=== PATIENT | female | born 1995 | race African-American/Black ===

== ENCOUNTER 2025-08-31 13:04 | Emergency (ER) | payer OTHER, SELFPAY ==
[2025-08-31] VITALS (15 sets, daily range): BP systolic 123–146; BP diastolic 80–103; PULSE 86–113; RESP 10–22; TEMP 37; O2SAT 98–100
--- NOTE | ~2025-08-31 | XR_ITS ---
EXAMINATION: XR chest 1V portable COMPARISON: No comparisons available. HISTORY: Hypertension FINDINGS: The lungs are clear, no effusion. No pneumothorax. Heart is normal size. Mediastinal and hilar contours are within normal limits. Bony thorax no acute abnormality. Miscellaneous: None Impression: No acute cardiopulmonary abnormality. 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
--- NOTE | 2025-08-31 14:04 | ED_ITS ---
HPI - General Adult General Chief complaint: Extremity Problem,Nontraumatic Stated complaint: Tingling/numbness Time Seen by Provider: 08/31/25 14:04 Source: patient Mode of arrival: ambulatory Limitations: no limitations History of Present Illness HPI narrative: 29 years old female came to the ED with numbness tingling of the lips tips of fingers bilaterally started couple weeks before Halloween, been going off and on since. Patient reports some shortness of breath at night before going to sleep. 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 Patient reports no aggravating or relieving factors. Patient is a single mom, her car is broken, uses marijuana daily and alcohol daily. Related Data Allergies Allergy/AdvReac Type Severity Reaction Status Date / Time No Known Allergies Allergy Unknown Verified 08/31/25 13:29 Review of Systems 2 Review of Systems: All systems reviewed & are unremarkable except as noted in HPI and below Exam 2 Narrative: General appearance: Well-developed, well-nourished Skin: Normal color Head: Normocephalic, nontraumatic Eyes: Clear conjunctiva ENT: Oropharynx normal, ears normal, nose normal Neck: Supple, nontender Chest and respiratory: Airway patent, no respiratory distress, no accessory muscle use Heart: Regular rate/rhythm Abdomen: Soft, nontender, no organomegaly, quiet bowel sounds Vascular: Normal peripheral pulses, normal capillary refill. 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, no gross motor deficit Course Vital Signs Vital signs: Vital Signs Temperature 37.0 C 08/31/25 13:24 Pulse Rate 111 H 08/31/25 13:24 Respiratory Rate 20 08/31/25 13:24 Blood Pressure 146/103 H 08/31/25 13:24 Pulse Oximetry 98 08/31/25 13:24 Oxygen Delivery Room Air 08/31/25 13:24 Temperature 37.0 C 08/31/25 13:24 Pulse Rate 111 H 08/31/25 13:24 Respiratory Rate 20 08/31/25 13:24 Blood Pressure 146/103 H 08/31/25 13:24 Pulse Oximetry 98 08/31/25 13:24 Oxygen Delivery Room Air 08/31/25 13:24 Medical Decision Making [facility] Narrative Medical decision making narrative: Patient presents with tingling numbness of the lips and tips of fingers bilaterally Vital signs showing blood pressure 146/103 heart rate 111 Physical examination is unremarkable except for intermittent signing Differential diagnosis include anxiety like symptoms, less likely multiple sclerosis, urinary tract infection, electrolyte imbalance, dehydration Blood workup today includes CBC, CMP, TSH showed WBC 11.3, MCV 117, MCH 42.9, AST 113 ALT 114 alkaline phosphatase 147 otherwise within normal limit Urinalysis showed no evidence of infection Chest x-ray showed no acute abnormality Diagnosis paresthesia, elevated liver enzyme The pt was discharged to home.the pt,s condition upon discharge was fair,education was provided to the pt in reference to the final impression,discharge study results,treatment,prognosis and need for follow up . Differential Diagnosis Differential Diagnosis: As above Vital Signs Vital Signs: Vital Signs Temperature 37.0 C 08/31/25 13:24 Pulse Rate 111 H 08/31/25 13:24 Respiratory Rate 20 08/31/25 13:24 Blood Pressure 146/103 H 08/31/25 13:24 Pulse Oximetry 98 08/31/25 13:24 Oxygen Delivery Room Air 08/31/25 13:24 Temperature 37.0 C 08/31/25 13:24 Pulse Rate 111 H 08/31/25 13:24 Respiratory Rate 20 08/31/25 13:24 Blood Pressure 146/103 H 08/31/25 13:24 Pulse Oximetry 98 08/31/25 13:24 Oxygen Delivery Room Air 08/31/25 13:24 Lab Data 08/31/25 14:58 08/31/25 14:58 Labs: Lab Results 08/31/25 08/31/25 Range/Units 14:58 15:20 WBC 11.3 H (4.5-10.0) K/mm3 RBC 3.38 L (4.2-5.4) M/mm3 Hgb 14.5 (12.0-15.0) g/dL Hct 39.8 (37.0-47.0) % MCV 117.8 H (80-100) fl MCH 42.9 H (26-34) pg MCHC 36.4 H (32-36) g/dl RDW 13.3 (11.5-14.5) % Plt Count 258 (150-375) k/mm3 MPV 10.8 H (7.4-10.4) fl Immature Gran % (Auto) 0.3 (0-0.5) % Neut % (Auto) 66.3 (45.5-73.1) % Lymph % (Auto) 23.0 (18.3-44.2) % Young % (Auto) 9.6 H (2.6-8.5) % Eos % (Auto) 0.4 (0-4.4) % Baso % (Auto) 0.4 (0.2-1.2) % Lymph # (Auto) 2.61 (0.9-3.2) K/mm3 Young # (Auto) 1.1 H (0.1-0.6) K/mm3 Eos # (Auto) 0.1 (0-0.3) K/mm3 Baso # (Auto) 0.1 (0.0-0.1) K/mm3 Abs Immat Gran (auto) 0.03 (0.00-0.031) K/mm3 Absolute Neuts (auto) 7.5 H (1.3-6.7) K/mm3 Absolute Nucleated RBC 0.000 (0.0-0.012) K/mm3 Band Neutrophils % Not Reportable Nucleated RBC % 0.0 (0.0-0.2) % Platelet Estimate Adequate (Adequate) Macrocytosis 2+ (NORMAL) Schistocytes None seen Sodium 135 L (137-145) mmol/L Potassium 4.0 (3.4-5.0) mmol/L Chloride 104 (98-107) mmol/L Carbon Dioxide 21 L (22-30) mmol/L Anion Gap 10 (4-12) mmol/L BUN 9 (7-17) mg/dL Creatinine 0.70 (0.7-1.0) mg/dL Estim Creat Clear Calc 129 ml/min Estimated GFR > 60 (59 - ) Glucose 106 (65-110) mg/dL Calcium 9.4 (8.4-10.2) mg/dL Total Bilirubin 1.2 (0.2-1.3) mg/dL AST 113 H (14-36) U/L ALT 114 H (6-35) U/L Alkaline Phosphatase 147 H (38-126) U/L Total Protein 8.7 H (6.3-8.2) g/dL Albumin 4.6 (3.5-5.1) g/dL TSH 2.000 (0.465-4.680) uIU/mL Urine Color Yellow (Yellow) Urine Appearance Clear (Clear) Urine pH 7.5 (5.0-9.0) Ur Specific [place] 1.016 (1.001-1.035) Urine Protein Negative (Negative) mg/dL Urine Glucose (UA) Negative (Negative) mg/dL Urine Ketones Trace H (Negative) mg/dL Ur Blood (Man) Negative (Negative) Urine Nitrate Negative (Negative) Urine Bilirubin Negative (Negative) Urine Urobilinogen 1.0 (<2.0) mg/dL Add Ur Microanalysis Reviewed Leukocyte Esterase Rfl 1+ H (Negative) SANDI/UL Urine RBC 0-2 (0-2) /hpf Urine WBC 0-5 (0-3) /hpf Ur Squamous Epith Cells Few (Few) /hpf Urine Bacteria Rare /hpf Urine Casts 0-2 Urine Opiates Screen Negative (Negative) Urine Methadone Screen Negative (Negative) Ur Barbiturates Screen Negative (Negative) Ur Phencyclidine Scrn Negative (Negative) Ur Amphetamine Screen Negative (Negative) U Benzodiazepines Scrn Negative (Negative) Urine Cocaine Screen Negative (Negative) U Cannabinoids Screen Positive A (Negative) Imaging Data Radiologist's impression: Impressions Chest X-Ray 08/31/25 15:04 Impression: No acute cardiopulmonary abnormality. Critical Care Time Critical Care Time Critical Care Time: No Discharge Plan Discharge Clinical Impression: Paresthesia, Elevated liver enzymes, Anxiety-like symptoms Patient Disposition: Home Condition: Stable Instructions: Stress (ED), Paresthesia (ED), Transaminitis (ED) Additional Instructions: Return if symptoms are worsening , call your family physician/ gastroenterology for appointment, take ibuprofen as as needed for aches and pain, continue home medications. Patient Language: Macedonian Prescriptions: New hydroxyzine HCl 50 mg tablet 50 mg PO QID PRN (Reason: Hyperventilation) Qty: 30 0RF Follow-up/Referrals: PHYSICIAN,SLPS [Primary Care Provider, Internal Medicine] Robbie Stevens MD [Physician, Gastroenterology] - 09/06/25 Florentin John MD [Physician, Family Practice] - 09/04/25
--- OUTSIDE RECORDS SUMMARY | 2025-08-31 14:44 | XMS_ITS | Data Portability ---
Author Organization [facility] Address [address] [place] [address] Assessment Encounter Date Assessment Date Assessment LastModified by Organization Details LastModified Time 08/21/2025 08/21/2025 Your TB test will need to be read within 48-72 hours You may return here to have that completed Continue to follow up with your PCP for your routine visits As always you can return here for any other concerns, thank you for choosing [facility]. Not available 08/21/2025 12:11:08 Plan of Treatment Reminders Order Date Submit Date Provider Last Modified By Organization Details Last Modified Time Details Appointments None recorded . Lab PPD (purifie d protein derivati ve), skin test 2024 025 RADHA In-Office Order, Internal Use Only DO Not Attach Compendium DO Not Attach Compendium, Do Not Delete/merge, [id number] 17:41:23 vaginal pathogen s panel, ALEX+prob e, vaginal fluid 2023 024 [email or web address] (Centralized Electronic Ordering - All Locations), Patient Can Go To The Location Of Their Choice, [id number] 11:47:36 urinalys is, dipstick 2023 024 lila In-Office Order, Internal Use Only DO Not Attach Compendium DO Not Attach Compendium, Do Not Delete/merge, [id number] 11:56:48 pap, IG + reflex HPV 2023 024 [facility] (Centralized Electronic Ordering - All Locations), Patient Can Go To The Location Of Their Choice, [id number] 11:47:35 Referral None recorded . Procedures None recorded . Surgeries None recorded . Imaging None recorded . Medication Orders Tubersol 5 tub. unit/0.1 mL intrader mal injectio n solution 2024 025 [email or web address] Not available 22:29:13 Patient TargetsNo targets recorded. Patient Instructions Encounter Date Encounter Id Patient Instructions Last Modified By Organization Details Last Modified Time 10/15/2024 [id number] On the date of this encounter, I was immediately available to assist the resident/fellow in the care of the patient, and have reviewed and agree with the resident s findings and plan of care as discussed during appointment. ~MD Jackson Notes seems a bit skimpy an lacking detail. [email or web address] Not available 10/19/2024 12:40:11 08/21/2025 [id number] A healthy lifestyle: care instructions Not available 08/21/2025 12:06:43 Your TB test janis l need to be read within 48-72 hours You may return here to have that completed Continue to follow up with your PCP for your routine visits As always you can return here for any other concerns, thank you for choosing [facility]. Not available 08/21/2025 12:11:43 Reason for Referral None Reported. Results Created Date Observation Date Name Description Value Unit Range Abnormal Flag Note LastModifiedBy Organization Detail LastModifiedTime 10/15/2010/15/2024 urina lysis , dipst ick Leukocytes Trace Not Available In-Offi ce Order Internal Use Only DO Not Attach Compendium DO Not Attach Compendium, Do Not Delete/merge, [id number] 10/15/2024 14:50:36 10/15/20 24 10/15/2024 urina lysis , dipst ick Nitrite negati ve Not Available In-Office Order Internal Use Only DO Not Attach Compendium DO Not Attach Compendium, Do Not Delete/merge, [id number] 10/15/2024 14:50:36 10/15/20 24 10/15/2024 urina lysis , dipst ick Urobilinogen 1 Not Available In-Of fice Order Internal Use Only DO Not Attach Compendium DO Not Attach Compendium, Do Not Delete/merge, 10/15/2024 14:50:36 10/15/20 24 10/15/2024 urina lysis , dipst ick Protein Negati ve Not Available In-Office Order Internal Use Only DO Not Attach Compendium DO Not Attach Compendium, Do Not Delete/merge, 10/15/2024 14:50:36 10/15/20 24 10/15/2024 urina lysis , dipst ick pH 5.5 Not Available In-Office Order Internal Use Only DO Not Attach Compendium DO Not Attach Compendium, Do Not Delete/merge, 10/15/2024 14:50:36 10/15/20 24 10/15/2024 urina lysis , dipst ick Blood Negati ve Not Available In-Office Order Internal Use Only DO Not Attach Compendium DO Not Attach Compendium, Do Not Delete/merge, 10/15/2024 14:50:36 10/15/20 24 10/15/2024 urina lysis , dipst ick Specific [place] 1.015 Not Available In-Off ice Order Internal Use Only DO Not Attach Compendium DO Not Attach Compendium, Do Not Delete/merge, 10/15/2024 14:50:36 10/15/20 24 10/15/2024 urina lysis , dipst ick Ketone Negati ve Not Available In-Office Order Internal Use Only DO Not Attach Compendium DO Not Attach Compendium, Do Not Delete/merge, 10/15/2024 14:50:36 10/15/20 24 10/15/2024 urina lysis , dipst ick Bilirubin Negati ve Not Available In-Office Order Internal Use Only DO Not Attach Compendium DO Not Attach Compendium, Do Not Delete/merge, 10/15/2024 14:50:36 10/15/20 24 10/15/2024 urina lysis , dipst ick Glucose Negati ve Not Available In-Office Order Internal Use Only DO Not Attach Compendium DO Not Attach Compendium, Do Not Delete/merge, 10/15/2024 14:50:36 10/16/20 24 10/18/2024 NUA B VAGIN ITIS PLUS (VG+) atopobium vaginae HIGH - 2 score abnormal Not Available [facility] ([facility]) [address] [place], [address], 10/19/2024 03:07:36 10/16/20 24 10/18/2024 NUA B VAGIN ITIS PLUS (VG+) bvab 2 HIGH - 2 score abnormal Not Available [facility] ([facility]) [address], [place], [address], 10/19/2024 03:07:36 10/16/20 24 10/18/2024 NUA B VAGIN ITIS PLUS (VG+) megasphaera 1 HIGH - 2 score abnormal Calcu late total score by addin g the 3 indiv idual bacte rial vagin osis (BV) marke r score s toget her. Total score is inter prete d as follo ws: Total score 0-1: Indic ates the absen ce of BV. Total score 2: Indet ermin ate for BV. Addit ional clini enid data shoul d be evalu ated to estab daysi a diagn osis. Total score 3-6: Indic ates the prese nce of BV. Not Available [facility] ([facility]) [address] [place], [address], 10/19/2024 03:07:36 10/16/20 24 10/18/2024 NUA B VAGIN ITIS PLUS (VG+) alis albicans, ALEX NEGATI VE negati ve Not Available [facility] ([facility]) [address] [place], [address], 10/19/2024 03:07:36 10/16/20 24 10/18/2024 NUA B VAGIN ITIS PLUS (VG+) alis glabrata, ALEX NEGATI VE negati ve Not Available [facility] ([facility]) [address] [place], [address], 10/19/2024 03:07:36 10/16/20 24 10/19/2024 NUA B VAGIN ITIS PLUS (VG+) trich vag by ALEX POSITI VE negati ve abnormal Not Available [facility] ([facility]) [address] [facility], [place], [address], 10/19/2024 03:07:36 10/16/20 24 10/19/2024 NUA B VAGIN ITIS PLUS (VG+) chlamydia trachomatis, ALEX NEGATI VE negati ve Not Available [facility] ([facility]) [address], [place], [address], 10/19/2024 03:07:36 10/16/20 24 10/19/2024 NUA B VAGIN ITIS PLUS (VG+) neisseria gonorrhoeae, ALEX NEGATI VE negati ve Not Available [facility] ([facility]) [address], [place], [address], 10/19/2024 03:07:36 10/16/20 24 10/18/2024 IGP, APTIM A HPV, RFX 16/18 ,45 HPV aptima POSITI VE negati ve abnormal This nucle ic acid ampli ficat ion test detec ts fourt een high- risk HPV types (16,1 8,31, 33,35 ,39,4 5,51, 52,56 ,58,5 9,66, 68) witho ut diffe renti ation . Not Available [facility] ([facility]) [address], [place], [address], 10/24/2024 20:20:24 10/16/2010/24/2024 IGP, APTIM A HPV, RFX 16/18 ,45 diagnosis: COMMEN T NEGAT CONCETTA FOR INTRA EPITH ELIAL LESIO N OR MALIG SILVIA . SPECI MEN REPRO CESSE D FOR INTER PRETA TION USING GLACI AL ACETI C ACID (GAA) . Not Available [facility] ([facility]) [address] [facility] [address], [place], [address], 10/24/2024 20:20:24 10/16/20 24 10/24/2024 IGP, APTIM A HPV, RFX 16/18 ,45 specimen adequacy: ANNEMARIE Sevilla Satis facto ry for evalu ation . Endoc ervic al and/o r squam ous metap lasti c cells (endo cervi enid compo nent) are prese nt. Parti ally obscu ring thick areas are prese nt. Not Available [facility] ([facility]) [address] [facility], [place], [address], 10/24/2024 20:20:24 10/16/20 24 10/24/2024 IGP, APTIM A HPV, RFX 16/18 ,45 clinician provided ICD10: ANNEMARIE Sevilla N89.8 Z12.4 Not Available [facility] ([facility]) [address], [place], [address], 10/24/2024 20:20:24 10/16/20 24 10/24/2024 IGP, APTIM A HPV, RFX 16/18 ,45 performed by: Marilee Drake (ASCP ) Not Available [facility] ([facility]) [address] [place], [address], 10/24/2024 20:20:24 10/16/20 24 10/24/2024 IGP, APTIM A HPV, RFX 16/18 ,45 . . Not Available [facility] ([facility]) [address] [place], [address], 10/24/2024 20:20:24 10/16/20 24 10/24/2024 IGP, APTIM A HPV, RFX 16/18 ,45 note: ANNEMARIE Sevilla The Pap smear is a scree jose test leonora storm to aid in the detec tion of mariann ligna nt and malig nant condi tions of the uteri ne cervi x. It is not a diagn ostic proce dure and shoul d not be used as the sole means of detec ting cervi enid cance r. Both false -posi tive and false -nega tive repor ts do occur . Not Available [facility] ([facility]) [address] [place], [address], 10/24/2024 20:20:24 10/16/20 24 10/24/2024 IGP, APTIM A HPV, RFX 16/18 ,45 test methodology: - The Thin Prep( R) Image r was unabl e to read this speci men. There fore a gaye casanovaie w was perfo rmed. Not Available [facility] ([facility]) [address] [place], [address], 10/24/2024 20:20:24 10/16/20 24 10/24/2024 IGP, APTIM A HPV, RFX 16/18 ,45 HPV genotype reflex COMMEN T Crite hayden met, see HPV Genot ype resul ts. Not Available [facility] ([facility]) [address] [place], [address], 10/24/2024 20:20:24 10/16/20 24 10/24/2024 HPV GENOT YPES 16/18 ,45 HPV genotype 16 Negati ve negati ve Not Available [facility] ([facility]) [address] [place], [address], 10/24/2024 20:20:26 10/16/20 24 10/24/2024 HPV GENOT YPES 16/18 ,45 HPV genotype 18,45 Negati ve negati ve Not Available [facility] ([facility]) [address] [place], [address], 10/24/2024 20:20:26 08/23/20 25 08/23/2025 PPD (jermaine fied prote in deriv ative ), skin test Result Negati ve Not Available In-Office Order Internal Use Only DO Not Attach Compendium DO Not Attach Compendium, Do Not Delete/merge, [id number] 08/21/2025 12:06:35 Result Notes None recorded. Medical Equipment None Reported. Allergies No known drug allergies Medications Name Sig Start Date Stop Date Status Note LastModified by Organization Details LastModified Time Tubersol 5 tub. unit/0.1 mL intradermal injection solution Administer .1ml interdermal ly 2024 active Not Available Not Available Not Avai lable metronidazol e 500 mg tablet Take 1 tablet twice a day by oral route for 7 days. 2024 active Not Available Not Available Not Avai lable Vitals Date Recorded Body height Body mass index (BMI) Body weight Oxygen saturation Oxygen saturation in Arterial blood by Pulse oximetry Heart rate Respiratory rate Body temperature Systolic And Diastolic Provider Name and Address Organization Details Last Updated DateTime 5 167.64 cm 38.8 kg/m2 614874. 22 g 96 % 96 % 74 /min 18 /min 97.3 [degF] 136/83 mm[Hg] Georgette Gregg MA [facility] 5 11:49:04 Date Recorded Body weight Oxygen saturation Oxygen saturation in Arterial blood by Pulse oximetry Heart rate Body mass index (BMI) Body height Systolic And Diastolic Provider Name and Address Organization Details Last Updated DateTime 4 331161. 18 g 97 % 97 % 91 /min 37.5 kg/m2 167.64 cm 124/64 mm[Hg] Merlene Kent MA [facility] 4 14:47:35 Social History Question Answer Notes LastModified by Organizat ion Details LastModified Time Tobacco Smoking Status Never Smoker Merlene Kent MA null, [facility] 10/15/2024 14:41:11 How Many Years Have You Consumed Alcohol? 6 Information not available 10/15/2024 What Is Your Level Of Caffeine Consumption? Occasional Information not available 10/15/2024 Are There Any Guns Present In Your Home? No Information not available 10/15/2024 What Was The Date Of Your Most Recent Tobacco Screening? 08/21/2025 Information not available 08/21/2025 How Many Children Do You Have? 1 Information not available 10/15/2024 Do You Use Protection During Sex? No Information not available 10/15/2024 What Is Your Relationship Status? Single Information not available 10/15/2024 Are You Sexually Active? Yes Information not available 10/15/2024 Do You Have Smoke And Carbon Monoxide Detectors In Your Home? Yes Information not available 10/15/2024 Are You Passively Exposed To Smoke? No Information no t available 10/15/2024 Do You Use Sunscreen Routinely? No Information not available 10/15/2024 Has Tobacco Cessation Counseling Been Provided? Yes Information not available 10/15/2024 On What Date Was Tobacco Cessation Counseling Provided? 08/21/2025 Information not available 08/21/2025 Sex: Unknown Functional Status Question Answer Note LastModified by Organizat ion Details LastModified Time Do you use any illicit or recreational drugs? Yes Information not available 10/15/2024 Do you or have you ever used any other forms of tobacco or nicotine? No Information not available 10/15/2024 What is your level of alcohol consumption? Moderate Information not available 10/15/2024 Mental Status None recorded. Family History Nothing Reported. Medical History No medical history recorded. Gynecological History Statement/Question Response Flow Moderate Date of LMP 08/31/2024 Frequency of Cycle (Q days) Duration of Flow (days) 4 Current Control Method None Age at First Child 23 LMP Definite Obstetrics History GPAL:G 1 P 1 0 0 0 Type Value Full Term 1 Total 1 Past Encounters Encounter ID Performer Location Encounter Start Date Encounter Closed Date Diagnosis/Indication Diagnosis SNOMED-CT Code Diagnosis ICD10 Code Diagnosis IMO Codes Diagnosis Note [id number] MD Tam Pritchett ([facility] SPECIALIST) [address] [place] [phone] 10/15/2024 14:23:16 10/15/2024 14:29:12 Contraception care management 944749857 Z30.9 Screening for malignant neoplasm of cervix 808007992 Z12.4 Vaginal discharge 062177 006 N89.8 [id number] CHRIS CHRISTOPHER MD [facility] [address] [place] [address] 08/21/2025 11:37:52 08/22/2025 22:45:52 Obese class II 6347773412 46577 E66.812 E66.3 [id number] Tuberculos is screening 108074182 Z11.1 Health Concerns Section Related Observation LastModified by Organization Detai ls LastModified Time None Recorded Concern Status LastModified by Organization Details LastModified Time None Recorded Advance Directives Directive None Recorded Payers Insurance Date Sequence Insurance Name Policy Number Policy Morton Covered Member ID Morton Member ID Guarantor Name 08/28/2025 1 [employer] [place] - DOS ON OR AFTER 2020 (MEDICAID REPLACEMENT - HMO) Monika Acosta [id number] Monika Acosta Notes Date Note Type Note Provider Name and Address Organization Details Recorded Time 4 text/html here for well woman and control discussionpreviously was on the depo varying intervals for periods between 21-28 days, moderate to heavy flow initially and then slows downpain controlled with advil Taina Gonzalez MD Attn: [address] [place], [address], [facility] 10/19/2024 12:40:27 5 text/html ROS as noted in the HPI Monika Acosta is a 29 y/o female who present today to get a TB skin test for school. Denies any acute medical complaints. CRAOLYN FLETCHER NP Attn: [address] [place], [address], [facility] 08/21/2025 12:12:32 OBGyn Episode Ob Episode Information Episode Created Date Number of Fetuses Patient Bloodtype Patient rh Status Prepregnancy Weight lbs Domestic Partner Domestic Partner Phone Father Name Stock Receiver Status 10/15/20 24 1 CLOSED Fetus Data First Name Last Name Admitted to NICU Weight (g) Sex Living Outcome Pediatric Complications Fetus ID Race Codes Race Delivery Type [id number] Keshav Calculation Initial Keshav Date Initial Exam Date Initial Exam Provider Initial Ultrasound Date Last Menstrual Period Date Ultra Sound Weeks Gestation 0 Eighteen To Twenty Week Keshav Update Ultra Sound Date Fundal Height At Umbil Quickening Date Ultra Sound Latest Weeks Gestation Final Keshav Confirmed By Final Keshav Confirmed Date Final Keshav Date Ultra Sound Latest Days Gestation 0 0 Menstrual History Last Menstrual Date Menses Monthly On Bcp Conception Prior Menses Frequency Hcg Plus Date Menarche Onset Age Delivery Information Delivery Date Delivery Type Labor Anesthesia Weeks Gestation Incision Type Labor Labor Length Hrs Delivered By Post Complications Tubal Sterilization Discharge Date Comments 9 Discharge Information Feeding Method Contraceptive Method Maternal HG B and HCT Levels
--- OUTSIDE RECORDS SUMMARY | 2025-08-31 14:45 | XMS_ITS | Clinical Summary ---
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 Gender Identity Not on file Sexual Orientation Not on file Plan of Treatment Upcoming Encounters Date Type Department Care Team (Late st Contact Info) Description 09/19/2025 8:40 AM EVENT STAFF MEMBER Office Visit [facility] Family & Internal [address] [phone] Daisy Valdivia DO [address] [id number] Health Maintenance Due Date Last Done Comments Cervical Cancer Screening Pa p Smear (Age 21 to 29) Every 3 Years 1996 Cervical Cancer Screening 1996 Annual Physical 1999 Hepatitis C 2014 DTaP, Tdap and Td Vaccines ( 1 - Tdap) 2015 Hepatitis B Vaccines (1 of 3 - 19+ 3-dose series) 2015 HPV Vaccines (1 - 3-dose SCD M series) 2023 PHQ-2 (Physician [place]) 10/17/2024 COVID-19 Vaccine ( - 2024-2 6 season) 2025 Influenza Adult (#1) 2025 Hepatitis A Vaccines Aged Out No long er eligible based on patient's age to complete this topic Meningococcal B Vaccine Aged Out No l onger eligible based on patient's age to complete this topic Meningococcal Vaccine Aged Out No madeline jamie eligible based on patient's age to complete this topic Pneumococcal Vaccine: Pediat rics (0 to 5 Years) and At-Risk Patients (6 to 49 Years) Aged Out No longer eligible b ased on patient's age to complete this topic RSV Immunizations Under 20 Months Aged Out No longer eligible based on patient's age to complete this topic
[2025-08-31 15:08] LABS: Hematocrit 39.8 % (37.0-47.0); Hemoglobin 14.5 g/dL (12.0-15.0); Immature Granulocyte Percent A 0.3 % (0-0.5); Lymphocytes Absolute Auto 2.61 K/mm3 (0.9-3.2); Mean Corpuscular HGB Conc 36.4 g/dl (32-36); Mean Corpuscular Hemoglobin 42.9 pg (26-34); Mean Corpuscular Volume 117.8 fl (80-100); Nucleated Red Blood Cells Absolute Auto 0.000 K/mm3 (0.0-0.012); Nucleated Red Blood Cells Perc 0.0 % (0.0-0.2); Platelet Count Result 258 k/mm3 (150-375); Red Blood Count 3.38 M/mm3 (4.2-5.4); White Blood Count 11.3 K/mm3 (4.5-10.0)
[2025-08-31 15:23] LABS: Alanine Aminotransferase 114 U/L (6-35); Albumin Level 4.6 g/dL (3.5-5.1); Alkaline Phosphatase 147 U/L (38-126); Anion Gap 10 mmol/L (4-12); Aspartate Amino Transferase 113 U/L (14-36); Bilirubin,Total 1.2 mg/dL (0.2-1.3); Blood Urea Nitrogen 9 mg/dL (7-17); Calcium 9.4 mg/dL (8.4-10.2); Carbon Dioxide 21 mmol/L (22-30); Chloride 104 mmol/L (98-107); Estimated CRCL calculation 129 ml/min; Estimated Glomerular Filt Rate > 60; Glucose 106 mg/dL (65-110); Potassium 4.0 mmol/L (3.4-5.0); Sodium 135 mmol/L (137-145); Total Protein 8.7 g/dL (6.3-8.2)
[2025-08-31 15:43] LABS: Cannabinoid Screen Urine Positive (Negative)
[2025-08-31 15:46] LABS: Add Urine Microscopic? YES; Appearance Urine Clear (Clear); Glucose Urine UA Negative (Negative); Leukocyte Esterase Ur 1+ LEU/UL (Negative); Need Manual Microscopic Reviewed; Nitrate Urine Negative (Negative); Non Pathogenic Casts 0-2; Specific Grav Ur 1.016 (1.001-1.035)
[2025-08-31 15:48] LABS: Schistocytes None Seen
[2025-08-31 15:49] LABS: Macrocytosis 2+ (NORMAL)
[2025-08-31 15:54] LABS: Thyroid Stimulating Hormone 2.000 uIU/mL (0.465-4.680)
[2025-08-31 16:24] LABS: BEDSIDEPREGUCG Negative (Negative)
== END 2025-08-31 16:31 | disposition home or self-care (01) ==
PROVIDERS: Emergency Provider Emergency Medicine
DX: R20.2 Paresthesia of skin (principal); R74.01 Elevation of levels of liver transaminase levels; I10 Essential (primary) hypertension; F10.90 Alcohol use, unspecified, uncomplicated; F12.90 Cannabis use, unspecified, uncomplicated
CPT/HCPCS: 36415; 71045; 80053; 80307; 81001; 81025; 84443; 85025; 87086; 99283; A9270